=== PATIENT | male | born 1955 | race Hispanic/Latino ===

== ENCOUNTER 2018-03-01 13:31 | Outpatient (CLI) | payer BC ==
[2018-03-01 14:02] LABS: Blood Urea Nitrogen 21 mg/dL (9-20)
--- NOTE | 2018-03-01 15:07 | Cat Scan Report ---
CT head with and without contrast: Parkinson's, left arm dysfunction, falling. Unenhanced axial images demonstrates mild calcification in the carotid siphons. The cerebral anatomy appears generally unremarkable. No evidence of mass, hemorrhage, or focal abnormality. Following intravenous injection of contrast repeat images demonstrates a generally unremarkable vascular pattern with no evidence of occlusion or abnormal enhancement. The visualized bony structures are unremarkable. There is mild mucoperiosteal thickening in both sphenoid sinuses as well as multiple bilateral sphenoid air cells. There may be an air-fluid level in the right sphenoid sinus. Impressions: 1. Unremarkable intracranial scan. 2. Paranasal inflammatory changes with suspicion of air-fluid level in right sphenoid sinus.
== END 2018-03-01 13:32 | disposition home or self-care (01) ==
LOC: CT 13:31
PROVIDERS: ATTEND Psychiatry & Neurology Neurology
DX: I63.9 Cerebral infarction, unspecified (principal); G20 Parkinson's disease
CPT/HCPCS: 36415; 70470; 82565; 84520; Q9967